=== PATIENT | male | born 1960 | race Caucasian/White ===

== ENCOUNTER → 2018-05-23 09:48 | Outpatient (CLI) | payer MEDICAID | END | disposition home or self-care (01) | LOC: D.MRI 09:48 | DX: M75.101 Unspecified rotator cuff tear or rupture of right shoulder, not specified as traumatic (principal) ==

== ENCOUNTER 2018-11-22 10:33 | Observation (INO) | payer MEDICAID ==
[~2018-11-22] VITALS: Ht 177.8 cm; Wt 90.5 kg
[2018-11-22 11:00] VITALS: BP 120/87; Ht 177.8 cm; Wt 90.5 kg
--- NOTE | 2018-11-22 11:00 | NUR ---
ALERT AND ORIENTEDX4 WITH SLIGHT DYSPNEA NOTED EXPROATORY CRACKLES NOTED TO RLQ AND DIMINISHED POSTERIOR AND OTHERWISE CTA. 20G WITH S/L STARTED TO RT. F/A. DENIES ANY PAIN OR DISCOMFORT AT THIS TIME. ENCOURAGED TO USE CALL LIGHT FOR ASSIST.
[2018-11-22 11:39] LABS: BASOPHILS 0.1 % (0-2); EOSINOPHILS 1.4 % (0-7); HEMATOCRIT 41.8 % (42.0-54.0); HEMOGLOBIN 14.5 g/dL (13.5-17.5); IMMATURE GRANULOCYTES 0.3 % (0-5); LYMPHOCYTES 9.8 % (15-50); MCH 28.8 pg (26.0-34.0); MCHC 34.7 g/dL (31.0-37.0); MCV 83.1 fL (80.0-100.0); MEAN PLATELET VOLUME 9.3 fL (7.4-10.4); MONOCYTES 10.6 % (2-11); NEUTROPHILS 77.8 % (40-80); PLATELET COUNT 314 10x3/uL (130-400); RBC 5.03 10x6/uL (4.20-6.10); RDW 12.8 % (11.5-14.5); WBC 14.4 10x3/uL (4.8-10.8)
[2018-11-22 11:54] LABS: ALBUMIN 3.4 g/dL (3.4-5.0); ANION GAP 14.8 mmol/L (8-16); BILIRUBIN - TOTAL 1.53 mg/dL (0.2-1.3); CALCIUM 9.4 mg/dL (8.5-10.1); CARBON DIOXIDE 26.6 mmol/L (21.0-32.0); CREATININE - SERUM 1.2 mg/dL (0.6-1.3); POTASSIUM - SERUM 4.4 mmol/L (3.5-5.1); PROTEIN - SERUM 8.5 g/dL (6.4-8.2)
[2018-11-22 17:20] VITALS: BP 121/85
[2018-11-22 19:52] VITALS: BP 101/78
[2018-11-22] MEDS ORDERED: K-TAB10 MEQ PO (19:53)
[2018-11-22] MEDS ORDERED: AMBIEN10 MG PO (19:54)
[2018-11-22] MEDS ORDERED: FUROSEMIDE20 MG PO (19:54)
[2018-11-23 01:19] VITALS: BP 119/81
[2018-11-23 04:21] VITALS: BP 124/84
[2018-11-23 05:31] LABS: BASOPHILS 0.2 % (0-2); EOSINOPHILS 4.7 % (0-7); HEMATOCRIT 38.3 % (42.0-54.0); HEMOGLOBIN 13.2 g/dL (13.5-17.5); IMMATURE GRANULOCYTES 0.5 % (0-5); LYMPHOCYTES 10.6 % (15-50); MCH 28.3 pg (26.0-34.0); MCHC 34.5 g/dL (31.0-37.0); MEAN PLATELET VOLUME 9.1 fL (7.4-10.4); MONOCYTES 10.8 % (2-11); NEUTROPHILS 73.2 % (40-80); PLATELET COUNT 274 10x3/uL (130-400); RBC 4.67 10x6/uL (4.20-6.10); RDW 12.8 % (11.5-14.5); WBC 9.7 10x3/uL (4.8-10.8)
[2018-11-23 05:58] LABS: ALBUMIN 2.8 g/dL (3.4-5.0); ALKALINE PHOSPHATASE 58 U/L (46-116); ALT (SGPT) 21 U/L (10-68); BILIRUBIN - TOTAL 0.99 mg/dL (0.2-1.3); CALC OSMOLALITY 271 mosm/kg (275-300); CALCIUM 8.6 mg/dL (8.5-10.1); CARBON DIOXIDE 26.2 mmol/L (21.0-32.0); CHLORIDE - SERUM 100 mmol/L (98-107); GLUCOSE 104 mg/dL (74-106); MAGNESIUM - SERUM 2.1 mg/dL (1.8-2.4); POTASSIUM - SERUM 4.1 mmol/L (3.5-5.1); PROTEIN - SERUM 7.6 g/dL (6.4-8.2); SODIUM 135 mmol/L (136-145); UREA NITROGEN 19 mg/dL (7-18); eGFR NON AFRICAN AMERICAN 82 mL/min (90-120)
[2018-11-23 06:04] LABS: INR 1.16 (0.85-1.17); PROTIME 14.3 SECONDS (11.6-15.0)
[2018-11-23 10:07] VITALS: BP 115/78
[2018-11-23 13:28] VITALS: BP 110/74
[2018-11-23] MEDS ORDERED: ZITHROMAX500 MG PO (15:24)
--- NOTE | 2018-11-23 16:00 | NUR ---
IV DC WITH CATH INTACT, DC INSTCRUTIONS GIVEN PT VERABLIZES UNDERSTANDING FAMILY AT BEDSIDE LEAVING VIA AMBULATING VIA HOSTPIAL STAFF VIA PRIVATE VECHILE IN STABLE CONDITION
== END 2018-11-23 17:51 | disposition home or self-care (01) ==
LOC: D.MS 10:33 → OBSVTIME 10:34 → D.MS 11-23 17:51
PROVIDERS: Family Medicine; ADMIT Internal Medicine Nephrology; ATTEND Internal Medicine Nephrology
DX: J90 Pleural effusion, not elsewhere classified (principal); R59.0 Localized enlarged lymph nodes; S22.43XD Multiple fractures of ribs, bilateral, subsequent encounter for fracture with routine healing; R06.00 Dyspnea, unspecified; J18.9 Pneumonia, unspecified organism